=== PATIENT | female | born 1975 | race Caucasian/White ===

== ENCOUNTER 2021-05-09 10:10 | Outpatient (CLI) | payer SELFPAY ==
[2021-05-09 10:29] LABS: Hematocrit 41.4 % (37.0-47.0); Hemoglobin 14.7 g/dL (12.0-15.0); Mean Corpuscular HGB Conc 35.5 g/dl (32-36); Mean Corpuscular Hemoglobin 31.5 pg (26-34); Mean Corpuscular Volume 88.8 fl (80-100); Mean Platelet Volume 9.2 fl (7.4-10.4); Platelet Count Result 261 k/mm3 (150-375); Red Blood Count 4.66 M/mm3 (4.2-5.4); Red Cell Distribution Width 11.5 % (11.5-14.5)
[2021-05-09 12:47] LABS: Iron 181 ug/dL (37-170)
[2021-05-09 12:50] LABS: Albumin Level 4.3 g/dL (3.5-5.1); Anion Gap 9 mmol/L (8-16); Blood Urea Nitrogen 12 mg/dL (7-17); Calcium 9.3 mg/dL (8.4-10.2); Carbon Dioxide 23 mmol/L (22-30); Chloride 105 mmol/L (98-107); Estimated Glomerular Filt Rate > 60; Glucose 106 mg/dL (65-110); Potassium 3.8 mmol/L (3.4-5.0); Sodium 137 mmol/L (137-145)
[2021-05-09 13:00] LABS: Prealbumin 28.3 mg/dL (17.6-36.0)
== END 2021-05-09 10:11 | disposition home or self-care (01) ==
LOC: ANHLAB 10:13
PROVIDERS: PCP Nurse Practitioner; Visit Provider Surgery Plastic and Reconstructive Surgery
DX: Z90.3 Acquired absence of stomach [part of] (principal)
CPT/HCPCS: 36415; 80048; 82040; 83540; 84134; 85027

== ENCOUNTER 2021-09-19 07:38 | Outpatient (CLI) | payer OTHER, SELFPAY ==
[2021-09-19 08:11] LABS: Hematocrit 43.4 % (37.0-47.0); Hemoglobin 14.9 g/dL (12.0-15.0); Mean Corpuscular HGB Conc 34.3 g/dl (32-36); Mean Corpuscular Hemoglobin 30.9 pg (26-34); Mean Platelet Volume 9.4 fl (7.4-10.4); Platelet Count Result 253 k/mm3 (150-375); Red Blood Count 4.82 M/mm3 (4.2-5.4); Red Cell Distribution Width 10.9 % (11.5-14.5); White Blood Count 4.9 K/mm3 (4.5-10.0)
[2021-09-19 08:18] LABS: Albumin Level 4.5 g/dL (3.5-5.1); Anion Gap 4 mmol/L (8-16); Blood Urea Nitrogen 13 mg/dL (7-17); Calcium 9.5 mg/dL (8.4-10.2); Carbon Dioxide 33 mmol/L (22-30); Chloride 102 mmol/L (98-107); Estimated Glomerular Filt Rate > 60; Glucose 100 mg/dL (65-110); Iron 177 ug/dL (37-170); Potassium 4.7 mmol/L (3.4-5.0); Sodium 139 mmol/L (137-145)
[2021-09-19 08:25] LABS: Prealbumin 31.4 mg/dL (17.6-36.0)
== END 2021-09-19 07:39 | disposition home or self-care (01) ==
LOC: ANHLAB 07:42
PROVIDERS: PCP Nurse Practitioner; Visit Provider Surgery Plastic and Reconstructive Surgery
DX: Z90.3 Acquired absence of stomach [part of] (principal)
CPT/HCPCS: 36415; 80048; 82040; 83540; 84134; 85027

== ENCOUNTER 2021-10-09 11:45 | Outpatient (CLI) | payer OTHER, SELFPAY ==
--- NOTE | 2021-10-09 12:30 | ECG_ITS ---
Measurements Intervals [place] Rate: 71 P: 14 ME: 153 QRS: 51 QRSD: 95 T: 44 QT: 403 QTc: 440 Interpretive Statements SINUS RHYTHM NONSPECIFIC T-WAVE ABNORMALITY ABNORMAL ECG NO PREVIOUS ECG AVAILABLE FOR COMPARISON Electronically Signed On 10-09-2021 12:51:12 CDT by Óscar Martini M.D.
== END 2021-10-09 11:46 | disposition home or self-care (01) ==
LOC: ANHSURGERY 11:49
PROVIDERS: PCP Nurse Practitioner; Visit Provider Surgery Plastic and Reconstructive Surgery
DX: I10 Essential (primary) hypertension (principal); Z01.818 Encounter for other preprocedural examination; R94.31 Abnormal electrocardiogram [ECG] [EKG]
CPT/HCPCS: 93005

== ENCOUNTER 2021-10-14 00:06 | Day surgery (SDC) | payer OTHER, SELFPAY ==
[2021-10-07 10:37] VITALS: BMI 28.0
--- NOTE | 2021-10-07 11:27 | PC.NURSE ---
Report to the Outpatient Waiting Room, entrance under the green pavilion located off [facility], at time 0600__ on date _10/14/21 . OR Time: __729 . If your suergery time is changed, we will notify you on Wednesday10/13/21 - You and your visitor will be asked a series of questions to screen for COVID 19 for your protection. - Only one visitor is allowed at this time. - The patient visitor is requested to leave or wait in car when not with patient. - A mask is required within the hospital. Patients may have clear liquids (water, carbonated beverages, clear teas, apple juice) until 3 hours prior to surgery with a maximum of 20 ounces. - No food from midnight until time of surgery - Take the following medications with a SIP of water the morning of surgery: _duloxetine, lorazepam, propanolol Medications to discontinue per physician ____multivitamin Date to take last dose____10/11/21 Please no make-up, nail frisian, hairspray, perfume, deodorant, or body powder the day of surgery. No jewelry (including any body piercings) or valuables the day of surgery, leave them at home. Please take a shower or bath the night before, or the morning of, surgery with an antibacterial soap. Wear comfortable, loose fitting clothing. Children are encouraged to wear pajamas. - Jewelry must be removed prior to entering the operating room. Rings and piercings that are not removed may be cut off. - The hospital will not accept responsibility for valuables. - Please leave all valuables, including medications, at home the day of surgery. If you are going home after surgery, a licensed cement mixer driver must drive you home. - NO public transportation without another adult. - We recommend that an adult stay with you for 24 hours following discharge. - We also recommend that you do not drive, make important decision, drink alcoholic beverages, or take any drugs that were not prescribed by your health care provider for at least 24 hours after your discharge time. Follow any additional instructions given to you from your surgeon. If you or anyone in your household have experienced Covid symptoms in the past week, please notify your surgeon or the nurse liaison at the phone number below for possible testing. Telephone instructions given to __Donna__and asked if any additional questions and then verbalized understanding. Patient advised to call surgeon office or pre surgery nurse liaison [phone] if any additional questions.
[2021-10-14] VITALS (10 sets, daily range): BP systolic 100–160; BP diastolic 59–99; PULSE 71–84; RESP 12–18; TEMP 36–37.2; O2SAT 94–100
[2021-10-14] MEDS: LACTATED RINGERS 1,000 ML 30 ML IV CONT ×2 (06:30→12:05)
--- NOTE | 2021-10-14 06:41 | W.PM.PROC2 ---
Procedure Note - Detailed Date of Procedure 10/14/21 Pre-op Diagnosis Micromastia,Skin Laxity, localized adiposity Post-op Diagnosis Same Procedure Performed 1. Bilateral agumentation mammaplasty 2. Progressive tension abdominoplasty with suction lipectomy abdoemn / flank Surgeon Reginald Parker MD Anesthesia General Findings Bilateral Natyohannes Inspira SoftTouch Implants 380 cc Bilateral dual plane 3 Right - REF# SSL-380 SN [id number] Left - REF# [id number] SN [id number] Lipoaspirate 3200 cc Description of Procedure she is here today for the above procedures. Previously and again today the risks, benefits, alternatives were discussed in extensive detail. I wanted them to be very realistic about the risks involved as well as expectations. We discussed aftercare and what to monitor for. I was very upfront about the risks of wound breakdown leading to loss of skin, open wounds, and need for additional procedures with permanent abdominal deformity. We discussed DVT/PE risks and management. Made sure answered all of their questions to their satisfaction today and consent was obtained. Marked in the preoperative holding area with their verification. The patient was taken to the operating room placed supine on the operating table. Anesthesia was provided by anesthesiology. A surgical time-out was taken. We cleansed the skin and 1% lidocaine and 0.25% Marcaine with epinephrine was used anesthetize as a field block. A Duval catheter was started. They were prepped and draped in a standard sterile fashion completing a 360 degree prep. Breast Tegaderm nipple Arreaga were placed. A 15 blade used to make an incision along the inframammary fold. Dissection was continued at 45 degree angle until the chest wall as identified. I elevated superficial to pectoralis fascia in a dual plane fashion as above. I incised the pectoralis major along its inferior border and completely released the inferior border leaving the medial border intact. I created a subpectoral pocket in the appropriate dimensions based on our preoperative planning for the implant. I then copiously irrigated with saline solution and verified a strict hemostasis. Next the use a triple antibiotic and Betadine containing solution to irrigate the pocket. I washed my gloves with the triple antibiotic and Betadine solution. We washed the implant immediately upon opening it with this solution and only opened it when we needed it. I used implant funnel and no-touch technique. The implant was introduced into the pocket using the funnel. Having verified positioning of the implant this was closed using 2-0 Vicryl followed by 3-0 Monocryl in a running subcuticular 4-0 Monocryl followed by tissue glue. Abdomen I placed the patient in a flexed position to verify the upper and lower markings would reach. I then placed supine. A thorough abdominal examination was completed. Stab incisions were made and tumescent solution infiltrated. Suction lipectomy was completed with a 5mm basket cannula in multiple planes and passes based on S.A.F.E. technique. Patient was placed in the lateral dequbitus position with care taken to protect from injury during this procedure. Lipoaspirate was based on pre-operative planning and intraoperative observation / rolling pinch. A 10 blade was used to make the upper incision. I continued dissection down to the level of fascia. Elevated just what was necessary for repair of the diastasis. I then again flexed the bed to verify the upper skin flap would reach the lower markings without tension. Once verified I placed her supine once again and a 10 blade used to make the lower incision. I elevated up to level the umbilicus and left the umbilicus intact on a well-vascularized stalk. The intervening tissue was removed. A 2 mm blunt cannula with 0.5% bupivicaine was injected deep to the fascia bilaterally. I plicated the diastasis recti using 0 PDO stratafix barbed sutur
[2021-10-14 06:45] LABS: Urine Cotinine NEGATIVE
[2021-10-14] MEDS: TRANEXAMIC ACID 1,000MG/ISO100 1,000 MG/100 ML BAG 200 MG IVPB (07:00)
--- NOTE | 2021-10-14 07:11 | WPDANESEPPF ---
Anes - Initial Pre Proc Eval Procedure: Operation Date: 10/14/21 07:30 Proposed Procedures p Bilateral Breast Augmentation - Reginald Parker MD s Abdominoplasty with Liposuction - Reginald Parker MD Date/Time: 10/14/21 07:11 Surgeon: Reginald Parker MD Pre Op Diagnosis: Micromastia,Skin Laxity Patient Data Age: 46 Gender: F Height: 1.68 m Weight: 78.05 kg Allergies Allergy/AdvReac Type Severity Reaction Status Date / Time No Known Allergies Allergy Unverified 10/14/21 06:52 Home Medications Medication Instructions Recorded Confirmed Type duloxetine 60 mg capsule,delayed 60 mg PO DAILY 01/13/21 10/14/21 History release (Cymbalta) estazolam 1 mg tablet 1 mg PO QHS 01/13/21 10/07/21 History lamotrigine 200 mg tablet 200 mg PO HS 01/13/21 10/07/21 History lorazepam 1 mg tablet 1 mg PO DAILY PRN Anxiety 01/13/21 10/14/21 History multivitamin 1 tablet PO DAILY 01/13/21 10/14/21 History propranolol 60 mg tablet 60 mg PO DAILY 01/13/21 10/14/21 History carisoprodol 350 mg tablet (Soma) 350 mg PO TID PRN muscle pain #21 09/29/21 10/07/21 Rx tabs docusate sodium 100 mg capsule 100 mg PO DAILY #14 caps 09/29/21 10/07/21 Rx (Colace) ondansetron HCl 4 mg tablet 4 mg PO Q8H #21 tabs 09/29/21 10/07/21 Rx oxycodone-acetaminophen 5 mg-325 1 tablet PO Q6H PRN pain #30 tabs 09/29/21 10/07/21 Rx mg tablet (Percocet) ferrous sulfate 324 mg (65 mg 324 mg PO EVERY OTHER DAY 10/07/21 10/07/21 History iron) tablet,delayed release lisdexamfetamine 30 mg capsule 30 mg PO DAILY 10/07/21 10/07/21 History (Vyvanse) olanzapine 2.5 mg tablet 2.5 mg PO HS 10/07/21 10/07/21 History Laboratory Tests 10/14/21 06:21 Cotinine Negative Patient hx anesthesia problems: none Family hx anesthesia problems: none Results Review: All pre-operative results and documents have been reviewed as part of the pre-operative evaluation. [facility] Surgical History Surgical History History of sleeve gastrectomy Hx of cholecystectomy Family History Family History Father Hypertension Mother Diabetes mellitus Social History Social History Smoking status: Never smoker Tobacco type: cigarettes Alcohol intake: never Substance use: never Living arrangements: with family Spiritual care concerns: No Anes - Eval Final PreProcedure Day of Procedure 10/14/21 07:11 Patient weight: overweight Heart: regular rate and rhythm Lungs: clear to auscultation Neurological: alert and oriented Last oral intake: >/= 8 hours ASA classification: II Emergent: no Anesthesia type and monitoring: general GIVS and standard monitoring Results Review: All pre-operative results and documents have been reviewed as part of the pre-operative evaluation. Informed Consent: The patient's anesthetic plan and its attendant risks and benefits were discussed with the patient/family/POA. Questions were solicited and answers provided to the satisfaction of the patient/family/POA.
--- NOTE | 2021-10-14 07:16 | WPDHPUPDATE1 ---
History and Physical Update Update Date/Time: 10/14/21 07:16 History and Physical has been reviewed, including an updated exam of the patient. There are NO changes in the patient's condition. Risks, benefits, and alternatives have been discussed and questions answered. Patient agrees to proceed with procedure.
[2021-10-14] MEDS: ceFAZolin 2 GM/D5W 50 ML 2 GM/50 ML BAG IVPB (07:27)
[2021-10-14] MEDS: NACL 0.9% IRRIG POUR BOTTLE 900 ML, GENTAMICIN SULFATE INJ 160 MG, ceFAZolin 2 GM, POVI... IRRIGATION (08:27)
[2021-10-14] MEDS: LACTATED RINGERS IRRIG 1,000 ML, LIDOCAINE HCL 1% LOCAL INJ 50 ML, EPINEPHrine HCL INJ ... INFILTRATE ×3 (08:28→10:42)
[2021-10-14] MEDS: LIDO 1%/EPINEPHRINE/PF 1:200,000 30 ML VIAL XX (08:40)
[2021-10-14] MEDS: fentaNYL CITRATE INJ (*CRX) 100 MCG/2 ML VIAL 25 MCG IV PUSH ×3 (12:59→13:08)
[2021-10-14] MEDS: LACTATED RINGERS 1,000 ML 125 ML IV CONT (13:46)
[2021-10-14] MEDS: ONDANSETRON INJ 4 MG/2 ML VIAL IV PUSH (14:14)
--- NOTE | 2021-10-14 14:31 | OBPPTRN ---
1322 Patient transferred to post room #279 via bed. Oriented to unit, room, information board, admission packet and security measures. Patient verbalizes understanding.
[2021-10-14] MEDS: carisoprodoL (*CRX) 350 MG TABLET PO ×2 (17:35→23:36)
[2021-10-14] MEDS: ENOXAPARIN 40 MG/0.4 ML SYRINGE SUB-Q (17:36)
[2021-10-14] MEDS: OLANZapine 2.5 MG TABLET PO (21:05)
[2021-10-14] MEDS: lamoTRIgine 100 MG TABLET 200 MG PO (21:05)
[2021-10-14] MEDS: DOCUSATE SODIUM 100 MG CAPSULE PO (21:05)
[2021-10-14] MEDS: oxyCODONE/ACETAMINOPHEN (*CRX) 5-325 MG TABLET PO (21:05)
[2021-10-15] MEDS: oxyCODONE/ACETAMINOPHEN (*CRX) 5-325 MG TABLET PO ×2 (03:05→08:29)
[2021-10-15 03:45] VITALS: BP 103/63; PULSE 97; RESP 18; TEMP 37.1; O2SAT 95
[2021-10-15] MEDS: carisoprodoL (*CRX) 350 MG TABLET PO (05:31)
--- NOTE | 2021-10-15 06:29 | WPDPN ---
Progress Note: A&P Assessment and Plan (1) Micromastia: Code(s): N64.82 - Hypoplasia of breast Status: Acute Assessment and Plan: She is doing very well after bilateral augmentation mammoplasty and progressive tension abdominoplasty with suction lipectomy of abdomen and flanks. Will discharge home. I will see her. Today we had a lengthy discussion about the care. What monitor for. Activity limitations. What is an emergency and want to proceed to the ER. She understands we are available for all their questions at all times. She voiced a clear understanding of the care. We will see her back. (2) Skin laxity: Code(s): L57.4 - Cutis laxa senilis Status: Acute (3) Localized adiposity: Code(s): E65 - Localized adiposity Status: Acute (4) HTN (hypertension): Code(s): I10 - Essential (primary) hypertension Status: Acute (5) History of sleeve gastrectomy: Code(s): Z90.3 - Acquired absence of stomach [part of] Status: Acute Subjective Date/time seen: 10/15/21 06:29 Interval history: Overnight she says she has done very well. No fevers or chills. No nausea vomiting. No shortness of breath. No chest pain. She states she is able to ambulate without difficulty. Pain is controlled. Tolerating p.o.. She had a little discomfort in her anterior lateral left thigh however this has resolved. No calf tenderness. Review of Systems Review of Systems: All systems reviewed & are unremarkable except as noted in HPI and below Exam Narrative: Alert and oriented no obvious distress Respiratory and labored Bilateral breasts are soft. No signs of infection. No hematoma. No seroma. Abdomen soft. No signs of infection. No hematoma. No seroma. Good color and capillary refill throughout. No calf tenderness. Negative Homans. Bilateral anterior lateral thigh has normal sensation bilateral. Objective Data Vital Signs Vital Signs: Vital Signs - 24 hr 10/14/21 12:10 10/14/21 12:25 10/14/21 12:40 Temperature 36.1 C L Pulse Rate 81 71 76 Respiratory Rate 17 15 14 Blood Pressure 145/82 H 147/93 H 150/80 H Pulse Oximetry 100 100 100 Oxygen Delivery Simple Face Mask Simple Face Mask Room Air Oxygen Flow Rate 8 8 10/14/21 12:55 10/14/21 13:10 10/14/21 13:25 Temperature 36.6 C Pulse Rate 72 73 74 Respiratory Rate 12 14 16 Blood Pressure 160/96 H 152/99 H 145/88 H Pulse Oximetry 100 99 99 Oxygen Delivery Room Air Room Air Oxygen Flow Rate 10/14/21 13:22 10/14/21 17:33 10/14/21 17:33 Temperature 36.0 C L Pulse Rate 74 73 Respiratory Rate 16 18 Blood Pressure 107/75 Pulse Oximetry 99 94 Oxygen Delivery Room Air Room Air Oxygen Flow Rate 10/14/21 19:43 10/14/21 19:43 10/14/21 23:42 Temperature 37.2 C Pulse Rate 81 81 84 Respiratory Rate 18 18 18 Blood Pressure 110/71 Pulse Oximetry 100 100 99 Oxygen Delivery Room Air Room Air Oxygen Flow Rate 10/14/21 23:42 10/15/21 03:45 10/15/21 03:45 Temperature 36.9 C 37.1 C Pulse Rate 84 97 97 Respiratory Rate 18 18 18 Blood Pressure 100/59 L 103/63 Pulse Oximetry 99 95 95 Oxygen Delivery Room Air Oxygen Flow Rate Intake/Output Intake/Output: Intake & Output 10/12/21 10/13/21 10/14/21 10/15/21 23:59 23:59 23:59 23:59 Intake Total 2250 800 Output Total 850 100 Balance 1400 700 Meds/Results Medications: Active Medications Generic Name Dose Route Start Last Admin Trade Name Freq PRN Reason Stop Dose Admin Carisoprodol 350 mg 10/14/21 18:00 10/15/21 05:31 Carisoprodol (*Crx) 350 Mg Tablet PO 350 mg Q6HR JULIAN Administration Diazepam 5 mg 10/14/21 11:50 Diazepam (*Crx) 5 Mg Tablet PO TID PRN Anxiety Docusate Sodium 100 mg 10/14/21 21:00 10/14/21 21:05 Docusate Sodium 100 Mg Capsule PO 100 mg Q12HR JULIAN Administration Duloxetine HCl 60 mg 10/15/21 09:00 Duloxetine Hcl 6
--- NOTE | 2021-10-15 06:33 | P.DS_ITS ---
DS: Admitting Diagnosis Discharge Date 10/15/2021 Admitting Diagnosis Micromastia, skin laxity, localized adiposity, history of gastric sleeve DS: Discharge Diagnosis Discharge Diagnosis (1) Micromastia: Code(s): N64.82 - Hypoplasia of breast Status: Acute (2) Skin laxity: Code(s): L57.4 - Cutis laxa senilis Status: Acute (3) Localized adiposity: Code(s): E65 - Localized adiposity Status: Acute (4) History of sleeve gastrectomy: Code(s): Z90.3 - Acquired absence of stomach [part of] Status: Acute DS: Summary Hospital Course Hospital Course: She underwent bilateral augmentation mammoplasty, progressive tension abdominoplasty with suction lipectomy of abdomen and flank. Postoperatively she has done very well. Ambulating. Pain controlled. Tolerating diet. Will plan for discharge home. I will see her back. Time Spent with Patient Time attestation: Total time spent providing and/or coordinating discharge services: Exam Narrative: Alert and oriented no obvious distress Respiratory and labored Bilateral breasts are soft. No signs of infection. No hematoma. No seroma. Abdomen soft. No signs of infection. No hematoma. No seroma. Good color and capillary refill throughout. No calf tenderness. Negative Homans. Bilateral anterior lateral thigh has normal sensation bilateral. DS: Data Data Completed and Pending Labs on day of discharge: Labs from last 24 hours 10/14/21 06:21 Cotinine Negative Discharge Plan Discharge Patient Disposition: Home, Self-Care Discharge Instructions: POST OPERATIVE DISCHARGE INSTRUCTIONS REGINALD PARKER M.D. [facility] [address] [place] [address] * No driving for 24 hours after anesthesia and while you are taking pain medication. * Take all prescribed medication as directed * Diet as tolerated. * No lifting or activity that raises blood pressure for 48 hours. * Regular walking / ambulation. * May shower 24 hours after surgery. Once you shower do not take pain medication before showering as the combination of medication and heat may cause you to feel dizzy or pass out. * No pools or tubs for 2 weeks. * Slowly stand up straight as tolerated. * No straining or lifting more than 20 pounds. * Call with any questions or concerns. * Dressing Care: Continue abdominal binder / foam and surgical bra 23 hours per day. If you have any questions or concerns, please call the office . If it is after hours you will be directed to the it consulting director exchange. Shortness of breath, chest pain, or other medical emergency dial 911 / proceed to the Emerge ncy Room. Stand Alone Forms: General Discharge Instructions Follow-up/Referrals: Reginald Parker MD [Physician] - 1 Week Discharge Medications: Continued lorazepam 1 mg tablet 1 mg PO DAILY PRN (Reason: Anxiety) duloxetine [Cymbalta] 60 mg capsule,delayed release(DR/EC) 60 mg PO DAILY estazolam 1 mg tablet 1 mg PO QHS lamotrigine 200 mg tablet 200 mg PO HS propranolol 60 mg tablet 60 mg PO DAILY multivitamin Tablet 1 tablet PO DAILY
--- NOTE | 2021-10-15 06:33 | PM.DS ---
DS: Admitting Diagnosis Discharge Date 10/15/2021 Admitting Diagnosis Micromastia, skin laxity, localized adiposity, history of gastric sleeve DS: Discharge Diagnosis Discharge Diagnosis (1) Micromastia: Code(s): N64.82 - Hypoplasia of breast Status: Acute (2) Skin laxity: Code(s): L57.4 - Cutis laxa senilis Status: Acute (3) Localized adiposity: Code(s): E65 - Localized adiposity Status: Acute (4) History of sleeve gastrectomy: Code(s): Z90.3 - Acquired absence of stomach [part of] Status: Acute DS: Summary Hospital Course Hospital Course: She underwent bilateral augmentation mammoplasty, progressive tension abdominoplasty with suction lipectomy of abdomen and flank. Postoperatively she has done very well. Ambulating. Pain controlled. Tolerating diet. Will plan for discharge home. I will see her back. Time Spent with Patient Time attestation: Total time spent providing and/or coordinating discharge services: Exam Narrative: Alert and oriented no obvious distress Respiratory and labored Bilateral breasts are soft. No signs of infection. No hematoma. No seroma. Abdomen soft. No signs of infection. No hematoma. No seroma. Good color and capillary refill throughout. No calf tenderness. Negative Homans. Bilateral anterior lateral thigh has normal sensation bilateral. DS: Data Data Completed and Pending Labs on day of discharge: Labs from last 24 hours 10/14/21 06:21 Cotinine Negative Discharge Plan Discharge Patient Disposition: Home, Self-Care Discharge Instructions: POST OPERATIVE DISCHARGE INSTRUCTIONS REGINALD PARKER M.D. [facility] [address] [place] [address] No driving for 24 hours after anesthesia and while you are taking pain medication. Take all prescribed medication as directed Diet as tolerated. No lifting or activity that raises blood pressure for 48 hours. Regular walking / ambulation. May shower 24 hours after surgery. Once you shower do not take pain medication before showering as the combination of medication and heat may cause you to feel dizzy or pass out. No pools or tubs for 2 weeks. Slowly stand up straight as tolerated. No straining or lifting more than 20 pounds. Call with any questions or concerns. Dressing Care: Continue abdominal binder / foam and surgical bra 23 hours per day. If you have any questions or concerns, please call the office . If it is after hours you will be directed to the [employer] gear generator exchange. Shortness of breath, chest pain, or other medical emergency dial 911 / proceed to the Emergency Room. Stand Alone Forms: General Discharge Instructions Follow-up/Referrals: Reginald Parker MD [Physician] - 1 Week Discharge Medications: Continued lorazepam 1 mg tablet 1 mg PO DAILY PRN (Reason: Anxiety) duloxetine [Cymbalta] 60 mg capsule,delayed release(DR/EC) 60 mg PO DAILY estazolam 1 mg tablet 1 mg PO QHS lamotrigine 200 mg tablet 200 mg PO HS propranolol 60 mg tablet 60 mg PO DAILY multivitamin Tablet 1 tablet PO DAILY docusate sodium [Colace] 100 mg capsule 100 mg PO DAILY Qty: 14 0RF ondansetron HCl 4 mg tablet 4 mg PO Q8H Qty: 21 0RF carisoprodol [Soma] 350 mg tablet 350 mg PO TID PRN (Reason: muscle pain) Qty: 21 0RF oxycodone-acetaminophen [Percocet] 5-325 mg tablet 1 tablet PO Q6H PRN (Reason: pain) Qty: 30 0RF olanzapine 2.5 mg Tablet 2.5 mg PO HS ferrous sulfate 324 mg (65 mg iron) Tablet,Delayed Release (Dr/Ec) 324 mg PO EVERY OTHER DAY Rx Instructions: PT IS NOT ANEMIC; TAKES A SUPPLEMENT Held Vyvanse 30 mg Capsule 30 mg PO DAILY Hold Instructions: Resume on 11/22/21.
--- NOTE | 2021-10-15 07:25 | WPDANESPN ---
Anes - Prog Note Post-Op Date/Time: 10/15/21 07:25 Cardiovascular status: normal Respiratory status: normal Airway patency: baseline Mental status: baseline Post-Op hydration status: normal Vital Signs: Last Vital Signs Temp 37.1 C 10/15/21 03:45 Pulse 97 10/15/21 03:45 Resp 18 10/15/21 03:45 BP 103/63 10/15/21 03:45 Pulse Ox 95 10/15/21 03:45 O2 Del Method Room Air 10/15/21 03:45 O2 Flow Rate 8 10/14/21 12:25 Pain Score (VAS): 05/05 I/O: Intake & Output 10/14/21 10/14/21 10/15/21 15:59 23:59 07:59 Intake Total 1600 500 800 Output Total 50 800 100 Balance 1550 -300 700 Post-procedural complaints: none Patient Feedback: Patient satisfied with anesthetic care.
[2021-10-15 07:45] VITALS: BP 95/56; PULSE 88; RESP 16; TEMP 36.9; O2SAT 100
[2021-10-15] MEDS: DULoxetine HCL 60 MG CAPSULE.DR PO (08:30)
[2021-10-15] MEDS: DOCUSATE SODIUM 100 MG CAPSULE PO (08:30)
== END 2021-10-15 11:23 | disposition home or self-care (01) ==
LOC: ANHSURGERY 06:47 → ANHOB2 13:38
PROVIDERS: PCP Nurse Practitioner; Visit Provider Surgery Plastic and Reconstructive Surgery
PROC: (CPT 19325; principal; 2021-10-14 07:30)
PROC: (CPT 19325; 2021-10-14 07:30)
DX: Z41.1 Encounter for cosmetic surgery (principal); N64.82 Hypoplasia of breast; L57.4 Cutis laxa senilis; E65 Localized adiposity; Z98.84 Bariatric surgery status; Z79.899 Other long term (current) drug therapy
CPT/HCPCS: 19325; 15830; 15847; 15877; 80307; 99199; A9270; J0131; J0171; J0690; J1100; J1170; J1580; J1650; J2250; J2405; J2704; J3010; J7120